=== PATIENT | male | born 1980 | race Caucasian/White ===

== ENCOUNTER 2017-08-11 09:56 | Emergency (ER) | payer SELFPAY ==
[~2017-08-11] VITALS: Ht 190.5 cm; Wt 106.6 kg
[2017-08-11 10:02] VITALS: BP_SYST 148
--- NOTE | 2017-08-11 10:06 | NUR ---
Pt to bed 5
--- NOTE | 2017-08-11 10:09 | NUR ---
Pt complains of "hernia" that he has known about for years, getting harder and more painful. Pt states he was working out and felt a "pop or something that felt weird." Pt is nauseous but denies vomiting. Noted bump above umbilicus. Pt is AAO x 4 and ambulatory. No other injuries/complaints per patient or noted.
--- NOTE | 2017-08-11 10:12 | NUR ---
ER Dr. Prieto at bedside examining patient.
--- NOTE | 2017-08-11 10:17 | NUR ---
Adebayo sibely in ED - 08/11/17 at 1017 by [email or web address] SHASHANK Prieto at bedside explaining results to patient.
[2017-08-11 10:50] VITALS: BP_SYST 148
--- NOTE | 2017-08-11 10:50 | NUR ---
Patient given written and verbal discharge instructions and verbalizes understanding. ER MD discussed with patient the results and treatment provided. Patient in stable condition. ID arm band removed. Rx of Tylenol given. Patient educated on pain management and to follow up with PMD. Pain Scale 0. Opportunity for questions provided and answered. Medication side effect fact sheet provided.
== END 2017-08-11 10:50 | disposition home or self-care (01) ==
LOC: SED 09:56
DX: K42.9 Umbilical hernia without obstruction or gangrene (principal); R03.0 Elevated blood-pressure reading, without diagnosis of hypertension
CPT/HCPCS: 99282